=== PATIENT | male | born 1940 ===

== ENCOUNTER 2020-03-05 11:45 | Emergency (ER) | payer OTHER ==
[~2020-03-05] VITALS: Ht 172.7 cm; Wt 68.0 kg
[~2020-03-05 11:45] MED LIST: ANTIVERT25 M1 PO; CAPOTEN25 MG; LASIX40 MG; METOPROLOL SUC100 MG; SIMVASTATIN40 MG
[2020-03-05] MEDS ORDERED: ATORVASTATIN CA40 MG PO (11:53)
[2020-03-05] MEDS ORDERED: VASOTEC2.5 MG PO (11:53)
[2020-03-05] MEDS ORDERED: DIALYVITE 800-1 EACH PO (11:54)
[2020-03-05] MEDS ORDERED: B12 ACTIVE1000 MCG PO (11:54)
[2020-03-05] MEDS ORDERED: LEVO-T50 MCG PO (11:54)
[2020-03-05] MEDS ORDERED: ZESTRIL20 MG PO (11:55)
== END 2020-03-05 17:49 | disposition home or self-care (01) ==
LOC: ER 11:45
DX: K29.70 Gastritis, unspecified, without bleeding (principal); R42 Dizziness and giddiness